=== PATIENT | male | born 1965 | race Caucasian/White ===

== ENCOUNTER → 2016-08-24 | Outpatient (CLI) | payer BC | LOC: LAB 14:32 | PROVIDERS: ATTEND Orthopaedic Surgery | DX: M25.462 Effusion, left knee (principal) | CPT/HCPCS: 36415; 84550; 87070; 87205; 89051 ==

== ENCOUNTER → 2016-09-06 | Outpatient (CLI) | payer BC ==
--- NOTE | 2016-09-06 13:43 | Diagnostic Imaging Report ---
PROCEDURE: MRI left joint lower extremity without contrast. TECHNIQUE: Multiplanar, multisequence MR imaging of the left knee was performed without contrast. COMPARISON: None available. INDICATION: Left knee pain which is predominantly posterior. FINDINGS: MENISCI Medial meniscus: No tear of the medial meniscus. There is a small amount of intrasubstance degeneration of the posterior horn. Lateral meniscus: No tear of the lateral meniscus. LIGAMENTS ACL: Intact. PCL: Intact. MCL: Intact. LCL: The lateral collateral ligamentous complex is intact. EXTENSOR MECHANISM The extensor mechanism is intact. CARTILAGE Medial compartment: Articular cartilage in the medial compartment is preserved. Lateral compartment: The lateral compartment articular cartilage is preserved without high-grade chondromalacia. 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 BONE No fracture, stress fracture or osteonecrosis. SOFT TISSUE: No knee joint effusion. Mildly complicated Knox's cyst which extends over a length of approximately 5 cm. There are hba-iped-hves T2 hyperintensities on either end of the Knox's cyst, suggesting recent partial rupture of the cyst. IMPRESSION: 1. No meniscal tear. 2. 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 No foci of full-thickness chondromalacia in the knee. 3. Small to moderate-sized Knox's cyst with evidence of recent partial rupture. This may account for patient's posterior knee pain and burning sensation. Dictated by: Dictated on workstation # [id number]
== END ==
LOC: RAD 11:02
PROVIDERS: ATTEND Orthopaedic Surgery
DX: S83.222A Peripheral tear of medial meniscus, current injury, left knee, initial encounter (principal)
CPT/HCPCS: 73721